=== PATIENT | female | born 1960 | race American Indian/Alaskan Native ===

== ENCOUNTER 2022-03-12 20:29 | Emergency (ER) | payer SELFPAY ==
--- NOTE | 2022-03-12 22:00 | XRay Report ---
Left knee, 4 views HISTORY: Fall COMPARISON: None FINDINGS: No acute fracture. There is a bipartite patella. No significant arthritis. No joint effusio n. No focal soft tissue abnormality. Signer Name: Royer Lombardi MD Signed: 03/12/2022 9:55 PM Workstation Name: [id number]
[2022-03-13] MEDS ORDERED: IBUPROFEN 400 MG TAB PO ONE (01:22)
[2022-03-13] MEDS ORDERED: HYDROcodone/ACETAMINOPHEN 5-325 MG TAB PO ONE (01:22)
[2022-03-13] MEDS ORDERED: predniSONE 50 MG TAB PO ONE (01:22)
[2022-03-13] MEDS ORDERED: ONDANSETRON 4 MG ODT TAB PO ONE (01:22)
--- NOTE | 2022-03-13 02:05 | Emergency Department Report ---
ED Lower Extremity HPI - General Chief Complaint: Fall Stated Complaint: LT LEG PAIN Source: patient Mode of arrival: Ambulatory Limitations: No Limitations - History of Present Illness Initial Comments: Patient is a 61-year-old -N[place]alese female with a history of chronic osteoarthritis and chronic low back pain who presents to the ED with complaint of acute onset persistent bilateral knee pain, worse in the left knee than on the right as well as low back pain after she buckled, lost balance and fell down on the floor about 8 hours ago. Patient states that the pain is constant and persistent and that she is unable to bear weight on left knee because of worsening pain. Patient states that she frequently experiences fall whenever she norma up especially with getting up and that she has had multiple falls the last 6 months. Patient states that since her fall today her lower back pain has worsened. Patient denies head or neck injuries, dizziness, syncope, chest pain, shortness of breath, nausea and vomiting, numbness and tingling or weakness of lower extremities bilaterally. MD Complaint: knee injury (left knee pain), other (low back pain) -: Gradual, hour(s) (8) Injury: Knee: Left (pain) Type of Injury: other (buckled and fell down, landed on bilateral knees) Place: home Severity: severe Severity scale (0 -10): 8 Improves With: nothing Worsens With: weight bearing, movement, palpation Context: fall Associated Symptoms: able to partially bear weight. denies: snap/pop sensation, swelling, numbness, tingling, unable to bear weight, ambulatory, other - Related Data Previous Rx's Medication Instructions Recorded Last Taken Type Naproxen 500 mg PO Q12H PRN #30 tab 03/13/22 Unknown Rx methOCARBAMOL [Robaxin TAB] 500 mg PO TID PRN #30 tab 03/13/22 Unknown Rx predniSONE [Deltasone] 40 mg PO QDAY #10 tab 03/13/22 Unknown Rx traMADoL [Ultram] 50 mg PO Q6HR PRN #12 tablet 03/13/22 Unknown Rx Allergies Allergy/AdvReac Type Severity Reaction Status Date / Time shrimp Allergy Intermediate Rash Verified 03/12/22 21:23 ED Review of Systems ROS: Stated complaint: LT LEG PAIN Other details as noted in HPI Constitutional: denies: chills, fever Eyes: denies: eye pain, eye discharge, vision change ENT: denies: ear pain, throat pain Respiratory: denies: cough, shortness of breath, wheezing Cardiovascular: denies: chest pain, palpitations Endocrine: no symptoms reported Gastrointestinal: denies: abdominal pain, nausea, diarrhea Genitourinary: denies: urgency, dysuria, discharge Musculoskeletal: back pain (lower back), arthralgia (left knee pain), myalgia. denies: joint swelling Skin: denies: rash, lesions Neurological: denies: headache, weakness, paresthesias Psychiatric: denies: anxiety, depression Hematological/Lymphatic: denies: easy bleeding, easy bruising ED Past Medical Hx - Medications Home Medications: Home Medications Medication Instructions Recorded Confirmed Last Taken Type Naproxen 500 mg PO Q12H PRN #30 tab 03/13/22 Unknown Rx methOCARBAMOL [Robaxin TAB] 500 mg PO TID PRN #30 tab 03/13/22 Unknown Rx predniSONE [Deltasone] 40 mg PO QDAY #10 tab 03/13/22 Unknown Rx traMADoL [Ultram] 50 mg PO Q6HR PRN #12 tablet 03/13/22 Unknown Rx ED Physical Exam - General Limitations: No Limitations General appearance: alert, in no apparent distress - Head Head exam: Present: atraumatic, normocephalic, normal inspection - Eye Eye exam: Present: normal appearance, PERRL, EOMI Pupils: Present: normal accommodation - ENT ENT exam: Present: normal exam, normal orophraynx, mucous membranes moist, TM's normal bilaterally, normal external ear exam - Neck Neck exam: Present: normal inspection, full ROM. Absent: tenderness - Respiratory Respiratory exam: Present: normal lung sounds bilaterally. Absent: respiratory distress, wheezes, rales, rhonchi, stridor, chest wall tenderness, accessory muscle use, decreased breath sounds, prolonged expiratory - Cardiovascular Cardiovascular Exam: Present: regular rate, normal rhythm, normal heart sounds. Absent: systolic murmur, diastolic murmur, rubs, gallop - GI/Abdominal GI/Abdominal exam: Present: soft, normal bowel sounds. Absent: tenderness, guarding, hyperactive bowel sounds, hypoactive bowel sounds - Extremities Exam Extremities exam: Present: normal inspection, full ROM, tenderness (Palpable bilateral knee tenderness, worse on the left knee than on the right knee), normal capillary refill. Absent: pedal edema, joint swelling, calf tenderness - Back Exam Back exam: Present: normal inspection, full ROM, tenderness (Palpable lumbosacral paraspinal musculoskeletal tenderness), muscle spasm, paraspinal tenderness. Absent: CVA tenderness (R), CVA tenderness (L), vertebral tenderne ss - Neurological Exam Neurological exam: Present: alert, oriented X3, CN II-XII intact, normal gait, reflexes normal - Psychiatric Psychiatric exam: Present: normal affect, normal mood - Skin Skin exam: Present: warm, dry, intact, normal color. Absent: rash ED Course Vital Signs 03/12/22 21:19 Temperature 98.3 F Pulse Rate 63 Respiratory 18 Rate Blood Pressure 139/112 [Right] O2 Sat by Pulse 100 Oximetry ED Lower Extremity MDM - Radiology Data Radiology results: report reviewed, image reviewed [address] [address] XRay Report Signed Patient: SHAMAR MARIN MR#: [id number] : 1960 Acct:[id number] Age/Sex: 61 / F ADM Date: 03/12/22 Loc: ED Attending Dr: Ordering Physician: ED MD PAT Date of Service: 03/12/22 Procedure(s): XR knee 3V LT Accession Number(s): [id number] cc: ED MD PAT Fluoro Time In Minutes: Left knee, 4 views HISTORY: Fall COMPARISON: None FINDINGS: No acute fracture. There is a bipartite patella. No significant arthritis. No joint effusion. No focal soft tissue abnormality. Signer Name: Alex Enamorado MD Signed: 03/12/2022 9:55 PM Workstation Name: [id number] Transcribed By: JS Dictated By: ALEX ENAMORADO MD Electronically Authenticated By: ALEX ENAMORADO MD Signed Date/Time: 03/12/222154 DD/ 53 TD/TT: Print - Medical Decision Making This is a 61-year-old -N[place]alese female with a history of chronic osteoarthritis and chronic low back pain who presents to the ED with complaint of acute onset persistent bilateral knee pain, worse in the left knee than on the right as well as low back pain after she buckled, lost balance and fell down on the floor about 8 hours ago. Patient states that the pain is constant and persistent and that she is unable to bear weight on left knee because of worsening pain. Patient states that she frequently experiences fall whenever she norma up especially with getting up and that she has had multiple falls the last 6 months. Patient states that since her fall today her lower back pain has worsened. In the ED, patient is alert and oriented x3 and is not in any distress. Patient is hemodynamically stable. Patient was treated for pain in the ED. Left knee x-ray showed no acute fractures or subluxations. On reevaluation, patient's pain is well controlled medication. Patient will discharge home on pain medications and advised to follow-up with her primary care physician in 7 to 10 days for reevaluation or return to the ED immediately if symptoms get worse. - Differential Diagnosis Muscle strain; muscle spasm; osteoarthritis;knee fracture; knee sprain Critical care attestation.: If time is entered above; I have spent that time in minutes in the direct care of this critically ill patient, excluding procedure time. ED Disposition Clinical Impression: Spasm of muscle of lower back Chronic low back pain with bilateral sciatica Qualifiers: Back pain laterality: bilateral Qualified Code(s): M54.42 - Lumbago with sciatica, left side; M54.41 - Lumbago with sciatica, right side; G89.29 - Other chronic pain Sprain of left knee/leg Qualifiers: Encounter type: initial encounter Qualified Code(s): S83.92XA - Sprain of unspecified site of left knee, initial encounter Disposition: 01 HOME / SELF CARE / HOMELESS Is pt being admited?: No Does the pt Need Aspirin: No Condition: Stable Instructions: Muscle Cramps and Spasms, [id number], Knee Sprain, Adult, [id number], Chronic Back Pain, [id number] Additional Instructions: The left knee x-ray showed no acute fractures or subluxations. Therefore take medication with food, drink plenty of fluids, follow-up with your primary care physician in 7 to 10 days for reevaluation. Return to the ED immediately if symptoms get worse. Prescriptions: predniSONE [Deltasone] 40 mg PO QDAY #10 tab Naproxen 500 mg PO Q12H PRN #30 tab PRN Reason: Pain , Severe (7-10) methOCARBAMOL [Robaxin TAB] 500 mg PO TID PRN #30 tab PRN Reason: Muscle Spasm traMADoL [Ultram] 50 mg PO Q6HR PRN #12 tablet PRN Reason: Pain Referrals: [facility] [Provider Group] - 7-10 days Time of Disposition: 02:08 Print Language: TURKMEN
[2022-03-13 03:06] VITALS: BP 147/92
== END 2022-03-13 03:07 | disposition home or self-care (01) ==
LOC: ED 20:29
DX: S83.92XA Sprain of unspecified site of left knee, initial encounter (principal); M62.830 Muscle spasm of back; G89.29 Other chronic pain; M54.50 Low back pain, unspecified; X58.XXXA Exposure to other specified factors, initial encounter; Y93.89 Activity, other specified; Y92.89 Other specified places as the place of occurrence of the external cause; Y99.8 Other external cause status
CPT/HCPCS: 73562; 99283; J7512; J3490; Q0162